=== PATIENT | male | born 1945 | race Two or more races ===

== ENCOUNTER 2022-01-02 09:36 | Emergency (ER) | payer OTHER, MEDICAID ==
[~2022-01-02] VITALS: Ht 160 cm; Wt 62.0 kg
[2022-01-02] MEDS ORDERED: KETOROLAC TROMETH 60MG/2ML VIAL IM ONE (15:30)
[2022-01-02 17:00] VITALS: BP 126/64
[2022-01-02] MEDS ORDERED: IBUP800T26 PO (17:20)
[2022-01-02] MEDS ORDERED: HYDR-4902 PO (17:20)
== END 2022-01-02 17:33 | disposition home or self-care (01) ==
LOC: ER 09:36
DX: M47.26 Other spondylosis with radiculopathy, lumbar region (principal)
CPT/HCPCS: 72100; 96372; 99283; J1885